=== PATIENT | female | born 1965 | race Hispanic/Latino ===

== ENCOUNTER 2020-10-04 05:22 | Emergency (ER) | payer BC, OTHER ==
[2020-10-04] MEDS ORDERED: ONDANSETRON 4 MG TABLET ONE (06:09)
[2020-10-04] MEDS ORDERED: METOCLOPRAMIDE 10 MG TABLET ONE (06:10)
[2020-10-04] MEDS ORDERED: ACETAMINOPHEN EXTRA STRENGTH 500 MG TABLET ONE (06:10)
[2020-10-04] MEDS ORDERED: DEXAMETHASONE SOD PHOSPHATE 10MG/ML 1ML VIAL ONE (06:11)
== END 2020-10-04 06:50 | disposition home or self-care (01) ==
LOC: EDH 05:22
DX: B34.9 Viral infection, unspecified (principal); M79.10 Myalgia, unspecified site; E78.00 Pure hypercholesterolemia, unspecified; Z87.891 Personal history of nicotine dependence; Z88.0 Allergy status to penicillin
CPT/HCPCS: 99283; J1100; Q0162